=== PATIENT | female | born 1950 | race Caucasian/White ===

== ENCOUNTER 2019-06-25 14:35 | Emergency (ER) | payer MEDICARE ==
[2019-06-25] MEDS ORDERED: Lidocaine 1% 20 ML MDV ONE (15:33)
== END 2019-06-25 16:10 | disposition home or self-care (01) ==
LOC: MADERS 14:35
DX: M70.32 Other bursitis of elbow, left elbow (principal); E05.90 Thyrotoxicosis, unspecified without thyrotoxic crisis or storm; E78.5 Hyperlipidemia, unspecified; E78.00 Pure hypercholesterolemia, unspecified; Z79.899 Other long term (current) drug therapy
CPT/HCPCS: 99283; J2001

== ENCOUNTER 2019-07-12 10:04 | Emergency (ER) | payer MEDICARE, OTHER ==
--- NOTE | 2019-07-12 10:40 | RAD ---
EXAM: XR Elbow Lt 4 View STANDARD PROVIDED CLINICAL HISTORY: Pain FINDINGS: There is no evidence for fracture or other acute osseous abnormality. Alignment appears anatomic. Gaby nt spaces appear preserved. Soft tissue swelling overlying the olecranon. Osteophytes are seen about the elbow. IMPRESSION: No evidence for an acute osseous abnormality. If there is persistent clinical concern, conservative m anagement and follow-up imaging advised.
== END 2019-07-12 10:54 | disposition home or self-care (01) ==
LOC: MADERS 10:04
DX: M70.22 Olecranon bursitis, left elbow (principal); E05.90 Thyrotoxicosis, unspecified without thyrotoxic crisis or storm; E78.5 Hyperlipidemia, unspecified; E78.00 Pure hypercholesterolemia, unspecified; Z79.899 Other long term (current) drug therapy

== ENCOUNTER 2019-11-11 11:48 | Emergency (ER) | payer MEDICARE ==
[2019-11-11] MEDS ORDERED: Ondansetron PF 4 MG/2 ML Vial ONE (12:46)
[2019-11-11] MEDS ORDERED: Sodium Chloride 0.9% 1,000 ML ONE (12:59)
[2019-11-11 13:12] LABS: Hemoglobin 13.7 g/dL (12.0-16.0); Mean Corpuscular HGB CONC 31.7 g/dL (32.0-36.0); Mean Corpuscular Hemoglobin 29.7 pg (27.0-31.0); Mean Corpuscular Volume 93.7 fL (78.0-98.0); Mean Platelet Volume 6.1 fL (7.4-10.4); Platelet Count 339 thou/uL (130-400); RBC Distribution Width 12.4 % (11.5-14.5); Red Blood Cell (RBC) Count 4.61 mill/uL (4.20-5.40); White Blood Cell (WBC) Count 5.2 thou/uL (4.8-10.8)
[2019-11-11 13:20] LABS: Anisocytosis SLIGHT = 6-15 cells (100X) (0-5/hpf); Band 2 % (5-11); Lymphocytes 26 % (21-51); MDiff Complete? YES; Manual Diff?? YES; Monocytes 6 % (0-10); Neutrophil 66 % (42-75); Platelet Morphology Comment Appears Adequate
[2019-11-11 13:23] LABS: ALT (SGPT) 20 U/L (8-55); AST (SGOT) 18 U/L (5-34); Albumin 4.1 g/dL (3.4-4.8); Alkaline Phosphatase 97 U/L (40-110); Anion Gap 13 mmol/L (10-20); BUN (Urea Nitrogen) 10 mg/dL (9.8-20.1); Bilirubin, Total 0.3 mg/dL (0.2-1.2); Calc. Creatinine Clearance 0 mL/min (70-130); Calcium 8.8 mg/dL (7.8-10.44); Carbon Dioxide 22 mmol/L (23-31); Chloride 106 mmol/L (98-107); Estimated GFR-MDRD Greater than 90; Glucose 100 mg/dL (80-115); Lipase 27 U/L (8-78); Potassium 3.3 mmol/L (3.5-5.1); Protein, Total 7.1 g/dL (6.0-8.3); Sodium 138 mmol/L (136-145)
== END 2019-11-11 14:06 | disposition home or self-care (01) ==
LOC: MADERS 11:48
DX: R11.2 Nausea with vomiting, unspecified (principal); R19.7 Diarrhea, unspecified; E78.5 Hyperlipidemia, unspecified; E78.00 Pure hypercholesterolemia, unspecified
CPT/HCPCS: 80053; 83605; 83690; 85025; 96361; 96374; J2405; J7050

== ENCOUNTER 2021-06-23 08:59 | Outpatient (CLI) | payer MEDICARE ==
[2021-06-23 09:35] LABS: CKMB 0.8 ng/mL (0-6.6); Troponin I Less than 0.010 ng/mL (< 0.028)
== END 2021-06-23 09:00 | disposition home or self-care (01) ==
LOC: MADLAB 08:59
PROVIDERS: ATTEND Family Medicine
DX: R07.9 Chest pain, unspecified (principal)
CPT/HCPCS: 36415; 82553; 84484

== ENCOUNTER 2021-06-28 08:42 | Emergency (ER) | payer MEDICARE ==
[2021-06-29 00:34] LABS: SARS-CoV-2 PCR by NAA DETECTED (NotDetected)
== END 2021-06-28 09:27 | disposition home or self-care (01) ==
LOC: MADERS 08:42
DX: U07.1 COVID-19 (principal); E05.90 Thyrotoxicosis, unspecified without thyrotoxic crisis or storm; E78.5 Hyperlipidemia, unspecified; E78.00 Pure hypercholesterolemia, unspecified
CPT/HCPCS: 99284; U0003; U0005

== ENCOUNTER 2022-02-21 07:37 | Outpatient (CLI) | payer MEDICARE | END 2022-02-21 07:38 | disposition home or self-care (01) | LOC: MADULT 07:37 | PROVIDERS: ATTEND Registered Nurse | DX: E03.9 Hypothyroidism, unspecified (principal); E04.1 Nontoxic single thyroid nodule | CPT/HCPCS: 76536 ==

== ENCOUNTER 2022-04-02 12:44 | Emergency (ER) | payer OTHER | END 2022-04-02 14:10 | disposition home or self-care (01) | LOC: MADERS 12:44 | DX: S00.03XA Contusion of scalp, initial encounter (principal); E03.9 Hypothyroidism, unspecified; E78.5 Hyperlipidemia, unspecified; Z79.899 Other long term (current) drug therapy; W01.0XXA Fall on same level from slipping, tripping and stumbling without subsequent striking against object, initial encounter | CPT/HCPCS: 99283 ==

== ENCOUNTER 2022-08-12 09:51 | Outpatient (CLI) | payer OTHER | END 2022-08-12 09:52 | disposition home or self-care (01) | LOC: MADLAB 09:51 | PROVIDERS: ATTEND Family Medicine | DX: S90.32XA Contusion of left foot, initial encounter (principal); E03.9 Hypothyroidism, unspecified | CPT/HCPCS: 36415; 84481 ==

== ENCOUNTER 2022-10-31 11:34 | Outpatient (CLI) | payer OTHER, MEDICAID ==
[2022-10-31 14:03] LABS: ALT (SGPT) 26 U/L (8-55); AST (SGOT) 17 U/L (5-34); Albumin 4.4 g/dL (3.4-4.8); Alkaline Phosphatase 71 U/L (40-110); Anion Gap 14 mmol/L (10-20); BUN (Urea Nitrogen) 12 mg/dL (9.8-20.1); Bilirubin, Total 0.7 mg/dL (0.2-1.2); Calc. Creatinine Clearance 0 mL/min (70-130); Calcium 9.3 mg/dL (7.8-10.44); Carbon Dioxide 23 mmol/L (23-31); Cardiac Risk 2.6 (Less than 4.5); Chloride 106 mmol/L (98-107); Cholesterol 127 mg/dl (< 200 Desired); Estimated GFR 92; Globulin 3.1 g/dL (2.4-3.5); Glucose 145 mg/dL (83-110); HDL Cholesterol 49 mg/dL (>60 Neg Risk); LDL Cholesterol, Calculated 36 mg/dL; Potassium 3.4 mmol/L (3.5-5.1); Protein, Total 7.5 g/dL (5.8-8.1); Sodium 140 mmol/L (136-145); Triglycerides 209 mg/dL (Less than 150)
== END 2022-10-31 11:35 | disposition home or self-care (01) ==
LOC: MADLAB 11:34
PROVIDERS: ATTEND Family Medicine
DX: S70.02XA Contusion of left hip, initial encounter (principal); R07.81 Pleurodynia; E78.2 Mixed hyperlipidemia; E03.9 Hypothyroidism, unspecified; R82.90 Unspecified abnormal findings in urine
CPT/HCPCS: 36415; 80053; 80061; 84443; 87077; 87086

== ENCOUNTER 2024-07-17 08:34 | Outpatient (CLI) | payer OTHER ==
[2024-07-17] MEDS ORDERED: Iopamidol 370 76% 100 ML VIAL ONE (09:00)
== END 2024-07-17 08:35 | disposition home or self-care (01) ==
LOC: MADCT 08:34
PROVIDERS: ATTEND Family Medicine
DX: R22.1 Localized swelling, mass and lump, neck (principal); R94.4 Abnormal results of kidney function studies; M47.812 Spondylosis without myelopathy or radiculopathy, cervical region
CPT/HCPCS: 36415; 70491; 82565; Q9967